=== PATIENT | male | born 1965 ===

== ENCOUNTER 2019-08-15 06:28 | Day surgery (SDC) | payer OTHER ==
--- NOTE | 2019-08-07 14:39 | HP ---
AMENDED REPORT NOW INCLUDES DESIGNATED COSIGNER PREOPERATIVE HISTORY AND PHYSICAL: DATE OF ADMISSION/SURGERY: 08/15/19 DATE OF OFFICE VISIT/ENCOUNTER: 07/27/19 ATTENDING SURGEON: Mayda Blanco MD * (DICTATED BY ELLIOT SANDERSON) PROCEDURE: Right ring finger flexor tendon exploration, tenolysis, possible tendon transfer. HISTORY OF PRESENT ILLNESS: This is a 54-year-old inmate at [facility] who complains of an injury to his right hand in June of 2018. He was helping carrying a stretcher and his right hand got crushed. He had significant pain and since then he has had difficulty with range of motion of his ring finger. He cannot flex his finger into a fist. He also has associated pain that can be quite significant at times. An MRI of the hand showed an injury to the flexor digitorum profundus tendon without any retraction. He denies any associated numbness or tingling. He has been wearing a splint on the finger but the symptoms have not improved. He had been scheduled for surgery in February of 2019 for this problem but was admitted to [facility] for a DVT in his leg and subsequently had vascular surgery. He is currently on Plavix. The nurse at [facility] was contacted and the plan would be to have the patient stop taking Plavix prior to surgery per the prescribing physician. PAST MEDICAL HISTORY: 1. Asthma. 2. Hypertension. 3. History of DVT in February of 2019. 4. Hypercholesterolemia. 5. History of diabetes. 6. History of prostate cancer. PAST SURGICAL HISTORY: Vascular surgery for DVT in right leg, February 2019. CURRENT MEDICATIONS: 1. Acetaminophen 325 mg 1 to 2 q.4 to 6 hours p.r.n. pain. 2. Albuterol sulfate inhaler p.r.n. 3. Amlodipine besylate 10 mg daily. 4. Atorvastatin calcium 40 mg daily. 5. Citalopram hydrobromide 40 mg daily. 6. Divalproex sodium ER 500 mg daily. 7. Docusate sodium 100 mg 1 tab every 12 hours p.r.n. 8. Fluticasone propionate/salmeterol p.r.n. 9. Hydrochlorothiazide 50 mg daily. 10. Lactase enzyme 300 units. 11. Lisinopril 40 mg daily. 12. Mirtazapine 30 mg daily. 13. Plavix 75 mg daily. 14. Polycarbophil 500 mg daily. 15. Tamsulosin HCl 0.4 mg daily. ALLERGIES: PENICILLIN, reaction unknown. FAMILY MEDICAL HISTORY: Noncontributory. SOCIAL HISTORY: The patient is an inmate at [facility]. He is a current smoker, he reports a couple of cigarettes a day off and on for several years. He denies current recreational drug use and is not currently drinking alcohol. REVIEW OF SYSTEMS: Negative for general, cephalic, cardiovascular, respiratory , GI, , other musculoskeletal, integumentary, endocrine, neurologic, and hematologic symptoms. Infectious Disease: Negative for MRSA, hepatitis C, HIV. PHYSICAL EXAMINATION GENERAL: A well-developed, well-nourished 54-year-old male, in no acute distress. VITAL SIGNS: Height 5 feet 7 inches, weight 211 pounds. Pulse rate 82, blood pressure 130/68. HEENT: Normocephalic, atraumatic. Pupils are equal, round, and reactive to light and accommodation. Extraocular movements are intact. Throat is clear. NECK: Supple. No palpable lymph nodes. PULMONARY: Lungs are clear to auscultation bilaterally. No wheezes, rales, or rhonchi. CARDIOVASCULAR: Regular rate and rhythm. S1, S2. No murmurs, rubs, or gallops. No edema. ABDOMEN: Positive bowel sounds. Soft, nontender. NEUROLOGICAL: Alert and oriented x3. Cranial nerves II through XII are intact. Sensation is intact to light touch. MUSCULOSKELETAL: On exam of his right hand, he has an extension deformity at the ring finger. He cannot make a full fist. He has normal passive and active motion of all the other fingers. He does not have any active motion at the PIP or DIP joints of the ring finger but good passive motion at the PIP joint. Fairly limited passive motion at the DIP joint. There is tenderness and a lump palpable in the mid aspect palm of his hand. Neurovascular function is intact. IMAGING STUDIES: MRI shows flexor tendon of the right ring finger to be at least partially ruptured. IMPRESSION: As above. PLAN: The patient is scheduled to undergo a right ring finger flexor tendon exploration, tenolysis, possible tendon transfer with Dr. Blanco on 08/15/19. He will return to the office 10 days postop for followup and suture removal. He will be prescribed postoperative pain medications through his facility. We will plan on having him stop taking his Plavix prior to surgery. ELLIOT SANDERSON [id number]/[facility]PS #: [id number] MTDSyl
[~2019-08-15 06:28] MED LIST: Buffered Lidocaine 1% SYRIN* 1 ML/SYRINGE INTRADERM ONE; Lactated Ringers 1000 ML Bag* 1,000 ML IV SCH
[2019-08-15] MEDS ORDERED: Clindamycin 900 MG/D5W BAG(*) 900 MG/50 ML BAG IVPB ONE (07:03)
[2019-08-15] MEDS ORDERED: Lidocaine 1% INJ* 10 MG/ML 30 ML SDV ONE (07:12)
[2019-08-15] MEDS ORDERED: Bupivacaine 0.5% SDV PF* 30ML VIAL ONE (07:12)
[2019-08-15] MEDS ORDERED: fentaNYL* 50 MCG/ML 2 ML VIAL (100 MCG VIAL) ONE (07:21)
[2019-08-15] MEDS ORDERED: Midazolam* 1 MG/ML 2 ML VIAL (2 MG) ONE (07:22)
[2019-08-15] MEDS ORDERED: Naloxone* 0.4 MG/ML 1 ML VIAL IV PRN (08:24)
[2019-08-15] MEDS ORDERED: oxyCODONE/Acetamin 5/325 MG* TAB PO PRN (08:24)
[2019-08-15] MEDS ORDERED: fentaNYL* 50 MCG/ML 2 ML VIAL (100 MCG VIAL) IV PRN (08:24)
[2019-08-15] MEDS ORDERED: Ondansetron INJ* 2 MG/ML VIAL IV PRN (08:24)
[2019-08-15] MEDS ORDERED: Propofol* 10 MG/ML 20 ML BTL ONE (08:30)
[2019-08-15] MEDS ORDERED: Glycopyrrolate IV* 0.2 MG/ML 1 ML VIAL ONE (08:30)
[2019-08-15] MEDS ORDERED: Ondansetron INJ* 2 MG/ML VIAL ONE (08:30)
[2019-08-15] MEDS ORDERED: Ketorolac INJ* 30 MG/ML 1 ML VIAL ONE (08:30)
[2019-08-15] MEDS ORDERED: Dexamethasone IV* 4 MG/ML 1 ML (4 MG) ONE (08:30)
[2019-08-15] MEDS ORDERED: Succinylcholine* 20 MG/ML 10 ML VIAL ONE (08:30)
[2019-08-15] MEDS ORDERED: Sevoflurane* BOTTLE ONE (08:52)
[2019-08-15 09:38] VITALS: BP 120/60
--- NOTE | 2019-08-15 15:15 | OP ---
DATE OF OPERATION: 08/15/19 [facility] DATE OF : 63 SURGEON: Dr. Blanco. SENIOR MANAGER CREATIVE SERVICES: ELLIOT De León. ANESTHESIA: General. PRE-OP DIAGNOSIS: Right ring finger flexor tendon scarring. POST-OP DIAGNOSIS: Right ring finger flexor tendon rupture. OPERATIVE PROCEDURE: Right ring finger exploration. ESTIMATED BLOOD LOSS: Zero. TOURNIQUET TIME: About 50 minutes. INDICATION FOR PROCEDURE: Tonia is a 54-year-old male inmate who suffered an injury of his right hand many months ago. His hand was crushed and since then he has not been able to flex his ring finger at the DIP joint. MRI showed the tendon to be intact, but there was abundant scarring around the mid aspect of the palm. The patient presents for flexor tendon exploration and possible tendon transfer. OPERATIVE FINDINGS: The flexor tendon was actually ruptured at the level of the PIP joint and there was scarring in the flexor tendon sheath distal to the rupture; therefore, I did not feel it was appropriate to do a one-stage tendon transfer and did not have available the Musa silicone rods, and, in reality, the patient may do better with a DIP fusion. DESCRIPTION OF PROCEDURE: The patient was brought to the operating room, was given a general anesthetic and placed in the supine position on the operating table with a tourniquet around his right upper arm. Skin of his right upper extremity was prepped and draped in the usual sterile fashion. The upper extremity was exsanguinated, and the tourniquet elevated to 250 mmHg and then was increased to 275 mmHg a bit later in the case as there was some bleeding. Radha incision was made in the palm of his hand and then carried distally across the PIP flexion crease. The flexor tendon had abundant scarring in the mid aspect of the palm and this was debrided; however, we still were unable to flex the DIP joint by pulling on the FDP tendon. The FDS tendon was intact and functioning. The FDP tendon was traced all the way to the PIP joint where it was found to be ruptured. The scar tissue around the tendon was debrided and the wound was then copiously irrigated with saline. It was decided to close the wound simply with exploration and pursue alternative treatment in the future depending on the patient's preference. He may benefit from a 2-stage tendon reconstruction or simply a DIP fusion. The skin edges were reapproximated with 4-0 nylon suture and then the wound was dressed with Xeroform, 4x4, Webril, and an Tobi wrap. The patient tolerated the procedure well and was brought to the recovery room in good condition. [id number]/[facility] #: [id number] MTDD
== END 2019-08-15 10:07 ==
LOC: OREAST 06:28
PROVIDERS: ATTEND Orthopaedic Surgery
DX: S66.114A Strain of flexor muscle, fascia and tendon of right ring finger at wrist and hand level, initial encounter (principal); X50.0XXA Overexertion from strenuous movement or load, initial encounter; Y93.89 Activity, other specified; Y92.9 Unspecified place or not applicable; I10 Essential (primary) hypertension; J45.909 Unspecified asthma, uncomplicated; Z85.46 Personal history of malignant neoplasm of prostate; E78.00 Pure hypercholesterolemia, unspecified; Z86.718 Personal history of other venous thrombosis and embolism; Z79.01 Long term (current) use of anticoagulants; F17.210 Nicotine dependence, cigarettes, uncomplicated; E78.5 Hyperlipidemia, unspecified
CPT/HCPCS: 88304; J0330; J1100; J1885; J2250; J2405; J2704; J3010; J3490